=== PATIENT | male | born 2000 | race Caucasian/White ===

== ENCOUNTER 2018-07-12 20:15 | Emergency (ER) | payer OTHER ==
[2018-07-12] MEDS ORDERED: IBUPROFEN 600 MG TAB PO ONE ×2 (20:38)
[2018-07-12] MEDS ORDERED: ACETAMINOPHEN 325 MG TAB PO ONE (20:38)
[2018-07-12] MEDS ORDERED: DEXAMETHASONE 4 MG TAB PO ONE (20:39)
--- NOTE | 2018-07-12 20:46 | EDPHY ---
H & P Stated Complaint: productive cough, fatigue, DUARTE, sinus congestion Source: Patient Exam Limitations: No limitations - Personal History Current Tetanus/Diphtheria Vaccine: Yes Current Tetanus Diphtheria and Acellular Pertussis (TDAP): Yes - Medical/Surgical History Hx Asthma: Yes Hx Chronic Respiratory Disease: No Hx Diabetes: No Hx Cardiac Disease: No Hx Renal Disease: No Hx Cirrhosis: No Hx Alcoholism: No Hx HIV/AIDS: No Hx Splenectomy or Spleen Trauma: No Other PMH: appendectomy, asthma - Social History Smoking Status: Never smoked Time Seen by Provider: 07/12/18 20:40 HPI/ROS: HPI: This is a 17-year-old male who presents with Chief Complaint: fatigue, DUARTE, sinus congestion Location: Throat Quality: Pain Duration: 2 days Signs and Symptoms: + T-max 101 F fever, no nausea, no vomiting, no diarrhea, no urinary symptoms, no chest pain, no shortness of breath, no wheezing, no cough, + sore throat, no neck stiffness, no joint pain, + swollen glands, no ear pain, no rash, no drooling Timing: Acute, constant Severity: Moderate Context: Patient is a student at [employer], presents with complaints of sudden onset of T-max fever of 101 F accompanied by sore throat, fatigue, generalized aching headache, sinus congestion. Received influenza vaccine this year. Took Tylenol prior to arrival. Reports decreased appetite but drinking fluids. Modifying Factors: See above Comment: ROS: A comprehensive 10 system review of systems is otherwise negative aside from elements mentioned in the history of present illness. MEDICAL/SURGICAL/SOCIAL HISTORY: Medical history: Generally healthy. Does not take any regular medications. Surgical history: Denies Social history: Drinks alcohol socially. Family history noncontributory. CONSTITUTIONAL: Nontoxic-appearing polite and cooperative teenage white male, awake and alert, no obvious distress HEENT: Atraumatic and normocephalic, PERRL, EOMI. Nares patent; no rhinorrhea; no nasal mucosal edema. Tympanic membranes clear. Oropharynx clear, tonsils 1 + with mild erythema and white exudate, uvula midline, halitosis, dry oral mucosa. Airway patent. No lymphadenopathy. No meningismus. Cardiovascular: Normal S1/S2, regular rate, regular rhythm, without murmur rub or gallop. PULMONARY/CHEST: Symmetrical and nontender. Clear to auscultation bilaterally. Good air movement. No accessory muscle usage. ABDOMEN: Soft, nondistended, nontender, no rebound, no guarding, no peritoneal signs, no masses or organomegaly. No CVAT. EXTREMITIES: 2/2 pulses, strength 5/5, no deformities, no clubbing, no cyanosis or edema. NEUROLOGICAL: no focal neuro deficits. GCS 15. Speech clear. SKIN: Warm and dry, no erythema. no rash. Good capillary refill. (Eileen Lozoya) Constitutional: Initial Vital Signs Temperature (C) 38.6 C H 07/12/18 20:19 Heart Rate 114 H 07/12/18 20:19 Respiratory Rate 20 07/12/18 20:19 Blood Pressure 113/84 H 07/12/18 20: O2 Sat (%) 94 07/12/18 20:19 O2 Delivery Mode Room Air Allergies/Adverse Reactions: No Known Allergies Allergy (Unverified 07/12/18 20:22) Home Medications: Medication Instructions Recorded Amoxicillin/Clavulanate Pot 875 mg PO BID #20 tab 07/12/18 [Augmentin 875 MG TAB (*)] Benzonatate [Tessalon Pearles (RX)] 100 mg PO 07/12/18 Medical Decision Making ED Course/Re-evaluation: Vital signs reviewed and show pyrexia and tachycardia. Given Decadron 10 mg, Tylenol, ibuprofen and Augmentin Rapid strep test negative but prophylactically treated based on high Modified Centor Score Modified Centor Score=4 1. Age Range: 15-44 years 0 2. Exudate or swelling on tonsils: Yes 3. Tender/swollen anterior cervical lymph nodes: Yes 4. Temp greater than 30 degree C: Yes 5. Cough: Absent=1 No signs of tonsillar abscess, meningitis, dehydration, malocclusion Given prescription for Augmentin x 10 days and school excuse. This patient was seen under the supervision of my secondary supervising physician. I evaluated and cared for this patient independently. (Eileen Lozoya) Differential Diagnosis: Adult fever including but not limited to viral syndromes including influenza, urinary tract infection, pneumonia and sepsis. (Eileen Lozoya) Other Provider: The patient was evaluated and managed by the Physician Torch Solderer. My co- signature indicates that I have reviewed this chart and I agree with the findings and plan of care as documented. I am the secondary supervising physician. (Yuli Villa) - Data Points Laboratory Results: 07/12/18 07/12/18 Unknown 20:44 Group A Strep Screen NEGATIVE (NEGATIVE) Group A Strep DNA Pending Medications Given: Discontinued Medications Acetaminophen (Tylenol) 650 mg PO EDNOW ONE Stop: 07/12/18 20:39 Last Admin: 07/12/18 20:40 Dose: 650 mg Amoxicillin/Clavulanate Potassium (Augmentin 875mg) 875 mg PO EDNOW ONE PRN Reason: Protocol Stop: 07/12/18 20:48 Last Admin: 07/12/18 21:09 Dose: 875 mg Dexamethasone (Decadron) 10 mg PO EDNOW ONE Stop: 07/12/18 20:40 Last Admin: 07/12/18 20:42 Dose: 10 mg Ibuprofen (Motrin) 600 mg PO EDNOW ONE Stop: 07/12/18 20:39 Last Admin: 07/12/18 20:40 Dose: 600 mg Departure - Departure Disposition: Home, Routine, Self-Care Clinical Impression: Pharyngitis, streptococcal, acute Condition: Good Instructions: Strep Throat (ED) Additional Instructions: Rest as much as possible until you are feeling better. Consume a minimum of 8-10 glasses of water or electrolyte fluid replacement drinks that include Gatorade, Powerade, Pedialyte. Eat a bland diet for the next 48 hours and then slowly advance as tolerated. Take antibiotic as directed for 10 days. Do not skip a dose. Take entire 10 day course. Take Tylenol 650 mg every 4 hr and/or ibuprofen 600 mg every 6-8 hours as needed for pain, fever. Referrals: [facility] [Clinic] - As per Instructions Stand Alone Forms: School Excuse Prescriptions: Amoxicillin/Clavulanate Pot [Augmentin 875 MG TAB (*)] 875 mg PO BID #20 tab
[2018-07-12] MEDS ORDERED: AMOXICILLIN/CLAVULANATE POT 875/125 MG TAB PO ONE (20:47)
[2018-07-12 21:12] VITALS: BP 113/72
== END 2018-07-12 21:12 | disposition home or self-care (01) ==
DX: J02.0 Streptococcal pharyngitis (principal); J45.909 Unspecified asthma, uncomplicated